=== PATIENT | female | born 1995 ===

== ENCOUNTER 2017-02-20 22:02 | Emergency (ER) | payer OTHER ==
[2017-02-20 22:13] VITALS: O2SAT 100
[2017-02-20] MEDS ORDERED: Sodium Chloride 0.9% 1,000 ML IV STA (22:54)
[2017-02-20] MEDS ORDERED: Alum-Mag Hydrox-Simethicone Susp (30 mL) PO STA (22:54)
--- NOTE | 2017-02-20 23:00 | C.PDOC ---
History Of Present Illness 21 y/o F c no PMHx p/w vomiting and diarrhea x 4 days. She reports fever on Day 1 and again today. States symptoms did improve in the middle. Reports epigastric burning pain, which she states she's actually had for about a month. Denies other abdominal pain, dysuria, dyspnea. No recent travel, hiking/camping , recent antibiotics, or blood in stool. Time Seen by Provider: 02/20/17 22:26 Chief Complaint (Nursing): Abdominal Pain Past Medical History Vital Signs: Last Vital Signs Temp 99.4 F 02/21/17 01:07 Pulse 104 H 02/21/17 01:07 Resp 18 02/21/17 01:07 BP 101/66 02/21/17 01:07 Pulse Ox 100 02/21/17 05:00 - Medical History PMH: Gastritis Family History: States: No Known Family Hx - Social History Hx Alcohol Use: No Hx Substance Use: No - Immunization History Hx Tetanus Toxoid Vaccination: Yes Hx Influenza Vaccination: Yes Hx Pneumococcal Vaccination: No Review Of Systems Except As Marked, All Systems Reviewed And Found Negative. Cardiovascular: Negative for: Chest Pain Respiratory: Negative for: Shortness of Breath Physical Exam - Physical Exam Additional Physical Exam Comments: Constitutional: No acute distress. Head: Normocephalic. Atraumatic. Eyes: PERRL. ENT: Moist mucous membranes. Neck: Supple. Cardiovascular: Mildly tachycardic.. Radial pulse 2+ bilaterally. Chest: No tenderness. Respiratory: Clear to auscultation bilaterally. GI: Soft. Nondistended. Epigastric tenderness, no rebound or guarding. Back: No CVA tenderness. Musculoskeletal: No tenderness or swelling of extremities. Capillary refill < 2 seconds. Skin: No rash.Good skin turgor. Neurologic: Alert, no focal deficit. ED Course And Treatment - Laboratory Results Result Diagrams: 02/20/17 23:35 02/20/17 23:35 O2 Sat by Pulse Oximetry: 100 Medical Decision Making Medical Decision Making: Treat with IVF, Zofran, Pepcid, Maalox, check labs, and reassess. Patient states she feels better. Labs unremarkable. Abdomen soft. Discharged home, f/u PMD, instructed to return to ER for worsening pain, fever, vomiting, dyspnea, or any other problem. Disposition - Disposition Disposition: HOME/ ROUTINE Disposition Time: 00:50 Condition: STABLE Prescriptions: Famotidine [Pepcid] 1 tab PO BID #14 tab Ondansetron ODT [Zofran ODT] 4 mg PO Q8 #12 odt Instructions: Gastroenteritis (ED) Forms: Work Excuse - Clinical Impression Clinical Impression: Vomiting, Diarrhea
[2017-02-20] MEDS ORDERED: Alum-Mag Hydrox-Simethicone Susp (30 mL) ONE (23:23)
[2017-02-20] MEDS ORDERED: Sodium Chloride 0.9% 1,000 ML ONE (23:23)
[2017-02-20 23:41] LABS: BASO % 0.3 % (0.0-2.0); EOS % 0.3 % (0.0-4.0); HEMATOCRIT 42.2 % (34.0-47.0); LYMPH # 0.8 K/uL (1.0-4.3); LYMPH % 7.2 % (20.0-40.0); MEAN CELL VOLUME 89.2 fL (81.0-99.0); MEAN CORPUSCULAR HEMOGLOBIN 29.7 pg (27.0-31.0); MEAN CORPUSCULAR HGB CONC 33.2 g/dL (33.0-37.0); MEAN PLATELET VOLUME 8.8 fL (7.2-11.7); MONO # 1.2 K/uL (0.0-0.8); MONO % 11.4 % (0.0-10.0); PLATELET COUNT 265 K/uL (130-400); WHITE BLOOD COUNT 10.8 K/uL (4.8-10.8)
[2017-02-20 23:45] LABS: RBC URINE 14 /hpf (0-3); URINE BACTERIA OCC (<OCC); URINE BILIRUBIN NEGATIVE (NEGATIVE); URINE BLOOD 1+ (NEGATIVE); URINE COLOR Yellow (YELLOW); URINE GLUCOSE (UA) NORMAL (Normal); URINE KETONE 1+ mg/dL (NEGATIVE); URINE PROTEIN NEGATIVE (NEGATIVE); URINE UROBILINOGEN NORMAL mg/dL (0.2-1.0); WBC URINE 6 /hpf (0-5)
[2017-02-20 23:46] LABS: URINE LEUKOCYTE ESTERASE TRACE Leu/uL (Negative)
[2017-02-20 23:47] LABS: CHLORIDE 100 mmol/L (98-107); POTASSIUM 3.5 mmol/L (3.6-5.2); SODIUM 135 mmol/L (132-148)
[2017-02-20 23:49] LABS: BILIRUBIN,TOTAL 0.5 mg/dL (0.2-1.3); GFR AFRICAN-AMERICAN > 60
[2017-02-20 23:50] LABS: ALB/GLOB RATIO 0.9 (1.0-2.1); ALKALINE PHOSPHATASE 101 U/L (38-126); ALT/SGPT 35 U/L (9-52); AST/SGOT 31 U/L (14-36); BLOOD UREA NITROGEN 12 mg/dL (7-17); CALCIUM 8.8 mg/dl (8.6-10.4); CARBON DIOXIDE 22 mmol/L (22-30); GLUCOSE,RANDOM 95 mg/dL (65-105); TOTAL PROTEIN 8.1 g/dL (6.3-8.3)
[2017-02-21 00:37] LABS: EOSINOPHIL 1 % (0-4); NEUTROPHIL 80 % (50-75); TOTAL CELLS COUNTED 100
[2017-02-21 01:08] VITALS: BP 101/66; PULSE 104; RESP 18; TEMP 99.4
== END 2017-02-21 01:09 | disposition home or self-care (01) ==
LOC: C.ER 22:02
DX: R11.10 Vomiting, unspecified (principal); R19.7 Diarrhea, unspecified
CPT/HCPCS: 80053; 81001; 83690; 84703; 85025; 96361; 96374; 96375; 99284; J2405; J7040